=== PATIENT | female | born 1990 | race African-American/Black ===

== ENCOUNTER 2018-03-12 13:12 | Emergency (ER) | payer MEDICAID, OTHER ==
[2018-03-12] MEDS ORDERED: Fluorescein Opthalmic Strip ONE (13:29)
[2018-03-12] MEDS ORDERED: Proparacaine 0.5% Opth 15 ML BOT ONE (13:29)
== END 2018-03-12 14:09 | disposition home or self-care (01) ==
LOC: ERS 13:12
DX: H10.9 Unspecified conjunctivitis (principal)
CPT/HCPCS: 99283

== ENCOUNTER 2018-07-15 10:40 | Emergency (ER) | payer OTHER, SELFPAY ==
[2018-07-15 11:30] LABS: #Eosinphils 0.1 thou/uL (0.0-0.7); #Lymphocytes 2.6 thou/uL (1.20-3.40); #Monocytes 0.7 thou/uL (0.11-0.59); #Neutrophils 6.8 thou/uL (1.40-6.50); %Basophils 0.5 % (0.0-1.0); %Eosinophils 1.4 % (0.0-10.0); %Monocytes 6.6 % (0.0-10.0); %Neutrophils 66.6 % (42.0-75.0); Hemoglobin 12.6 g/dL (12.0-16.0); Mean Corpuscular HGB CONC 32.3 g/dL (32.0-36.0); Mean Corpuscular Hemoglobin 29.5 pg (27.0-31.0); Mean Corpuscular Volume 91.6 fL (78.0-98.0); Mean Platelet Volume 7.5 fL (7.4-10.4); Platelet Count 332 thou/uL (130-400); RBC Distribution Width 12.2 % (11.5-14.5); Red Blood Cell (RBC) Count 4.27 mill/uL (4.20-5.40); White Blood Cell (WBC) Count 10.3 thou/uL (4.8-10.8)
--- NOTE | 2018-07-15 11:43 | RAD ---
FRadiograph abdomen one view: 07/15/2018 HISTORY: 27-year-old female with generalized abdominal pain and lack of bowel movement. COMPARISON: None FINDINGS: The bowel gas pattern is normal. There is a small to moderate amount of stool in the right hemicolon. No evidence of organomegaly. IMPRESSION: Negative
[2018-07-15 12:07] LABS: ALT (SGPT) 9 U/L (8-55); AST (SGOT) 14 U/L (5-34); Albumin 4.4 g/dL (3.5-5.0); Alkaline Phosphatase 72 U/L (40-150); Anion Gap 11 mmol/L (10-20); BUN (Urea Nitrogen) 4 mg/dL (7.0-18.7); Bilirubin, Total 0.4 mg/dL (0.2-1.2); Calc. Creatinine Clearance 0 mL/min (70-130); Calcium 9.5 mg/dL (7.8-10.44); Carbon Dioxide 27 mmol/L (22-29); Chloride 103 mmol/L (98-107); Estimated GFR-MDRD Greater than 90; Globulin 3.7 g/dL (2.4-3.5); Glucose 87 mg/dL (70-105); Lipase 28 U/L (8-78); Potassium 3.4 mmol/L (3.5-5.1); Protein, Total 8.1 g/dL (6.0-8.3); Sodium 138 mmol/L (136-145)
[2018-07-15] MEDS ORDERED: Bisacodyl 10 MG SUPP ONE (12:09)
[2018-07-15] MEDS ORDERED: Ondansetron PF 4 MG/2 ML Vial ONE (12:45)
[2018-07-15 12:46] LABS: Bilirubin Negative (Negative); Blood, Urine Negative (Negative); Clarity CLEAR (Clear); Glucose, Urine (Dipstick) Negative (Negative); Leukocyte Negative (Negative); Nitrite Negative (Negative); Protein, Urine (Dipstick) Negative (Neg-Trace); Specific Gravity, Urine 1.021 (1.002-1.036); pH, Urine 6.5 (5.0-9.0)
[2018-07-15 12:47] LABS: Pregnancy Test - Urine (BHCG) Negative (Negative)
[2018-07-15 12:48] LABS: Pregu Control Background? CLEAR/WHITE (CLR/WHITE); Pregu Control Bar Appear? YES (CONTROL BAR); Specific Gravity 1.021 (1.002-1.036)
--- NOTE | 2018-07-15 13:24 | CT ---
CT ABDOMEN AND PELVIS WITH IV CONTRAST: HISTORY: Left upper quadrant and left lower quadrant abdominal pain. FINDINGS: The lung bases are clear. The liver, spleen, pancreas, adrenal glands, and kidneys are normal. No c alcified gallstones are seen and no free air or lymphadenopathy is identified. There is a retroaorti c left renal vein. Uterus and ovaries are present. There is a small amount of free fluid in the pel vis. The appendix is normal. No pericolonic inflammatory changes are seen. IMPRESSION: Small amount of free fluid in the pelvis; otherwise, unremarkable exam. POS: OFF
[2018-07-15] MEDS ORDERED: ISOVUE-370 76%-LOCM 1 ML ONE (15:28)
== END 2018-07-15 13:55 | disposition home or self-care (01) ==
LOC: ERS 10:40
DX: K59.00 Constipation, unspecified (principal); D64.9 Anemia, unspecified; Z79.899 Other long term (current) drug therapy
CPT/HCPCS: 74018; 74177; 80053; 81003; 81025; 83690; 85025; 96361; 96374; J2405; Q9966